=== PATIENT | female | born 1990 | race Caucasian/White ===

== ENCOUNTER 2018-03-12 10:01 | Emergency (ER) | payer OTHER ==
[2018-03-12 10:07] VITALS: BP 133/87
--- NOTE | 2018-03-12 10:25 | EDPHY ---
H & P Stated Complaint: Jammed R thumb at work yesterday Time Seen by Provider: 03/12/18 10:24 HPI/ROS: HPI: This is a 27-year-old female who presents with Chief Complaint: Jammed R thumb at work yesterday Location: Right thumb Quality: Injury Duration: Yesterday Signs and Symptoms: No bleeding, no radiation, no numbness, no weakness, no tingling, no incontinence, + decreased range of motion, no swelling, + pain, no fever Timing: Acute Severity: Moderate Context: Patient is right-hand dominant, was working at the [employer] with a dog when she wrestled him into his can out and somehow injured her right thumb at the base. She reports that she felt immediate, constant, moderate, nonradiating pain at the base of her thumb. She reports mild swelling with increased pain with flexion and extension. She denies any paresthesias, weakness, skin color changes. Modifying Factors: None Comment: ROS: A comprehensive 10 system review of systems is otherwise negative aside from elements mentioned in the history of present illness. MEDICAL/SURGICAL/SOCIAL HISTORY: Medical history: Generally healthy. LMP 2-3 weeks ago. Takes oral control pills. Surgical history: Denies Social history: Current every day tobacco user. CONSTITUTIONAL: Well-developed, well-nourished, young adult white female, awake and alert, no obvious distress HEENT: Atraumatic and normocephalic. NECK: supple EXTREMITIES: 2/2 pulses, strength 5/5, right thumb at the MCP joint shows mild tenderness and mild decreased flexion extension but these are intact. DIP flexion/extension intact with good light touch sensation. no deformities, no clubbing, no cyanosis or edema. NEUROLOGICAL: no focal neuro deficits. GCS 15. Light touch sensation intact. SKIN: Warm and dry, no erythema. no rash. Good capillary refill. Source: Patient Exam Limitations: No limitations - Personal History LMP (Females 10-55): 22-28 Days Ago Current Tetanus Diphtheria and Acellular Pertussis (TDAP): Unsure - Medical/Surgical History Other PMH: healthy - Social History Smoking Status: Current every day smoker Constitutional: Initial Vital Signs Temperature (C) 37 C 03/12/18 10:03 Heart Rate 80 03/12/18 10:03 Respiratory Rate 18 03/12/18 10:03 Blood Pressure 133/87 H 03/12/18 10:03 O2 Sat (%) 98 03/12/18 10:03 O2 Delivery Mode Room Air Allergies/Adverse Reactions: Penicillins Allergy (Intermediate, Verified 03/12/18 10:07) Hives Home Medications: Medication Instructions Recorded Control Pills 03/12/18 Medical Decision Making - Diagnostics Imaging Results: Imaging Impressions Finger X-Ray 03/12/18 10:28 Impression: Negative. No acute fracture. Procedures: Procedure: Splint placement. A right thumb spica Velcro splint was applied by the Emergency Room clean room technician. After application of the splint I returned and re-examined the patient. The splint was adequately immobilizing the joint and distal to the splint the patient's circulation and sensation was intact. ED Course/Re-evaluation: Vital signs reviewed and stable upon arrival. Suspect sprain of UCL ligament but not rupture Placed in Velcro thumb spica splint with Hand follow-up as needed No signs of neurovascular compromise/tenting of skin/compartment syndrome/ extremities and joints examined above and below area of concern and are neurovascularly intact. This patient was seen under the supervision of my secondary supervising physician. I evaluated care for this patient independently. Discussed this patient with Dr. Rushing who did not see the patient. Differential Diagnosis: Differential diagnosis includes but is not limited to fracture, dislocation, ligament rupture, sprain, nerve injury. Departure - Departure Disposition: Home, Routine, Self-Care Clinical Impression: Sprain of hand, thumb, right Qualifiers: Encounter type: initial encounter Sprain of finger site: metacarpophalangeal joint Qualified Code(s): S63.641A - Sprain of metacarpophalangeal joint of right thumb, initial encounter Skier's thumb Qualifiers: Encounter type: initial encounter Laterality: right Qualified Code(s): S63.641A - Sprain of metacarpophalangeal joint of right thumb, initial encounter Condition: Good Instructions: Skier's Thumb (ED) Additional Instructions: Wear the thumb spica splint while out of bed until pain free or seen by orthopedic/hand. Take Tylenol 650 mg every 4 hours and/or Ibuprofen 600 mg every 8 hours with food as needed for pain. Apply ice for 30 minutes at a time; 2-3 times per day for the next 1-2 days. Follow up with Orthopedics-Hand in 5-7 days if symptoms persist at which time they will evaluate and recommend with you if conservative management versus further imaging is indicated. The x-rays obtained in the emergency department today demonstrate no evidence of an obvious fracture. Sometimes fractures are not obvious on the initial set of x-rays performed in the ED. For this reason, you should have repeat x-rays performed in 7-10 days if you are having any pain exclude the possibility of an occult fracture. Referrals: Alf Helton MD [Medical Doctor] - As per Instructions
== END 2018-03-12 10:58 | disposition home or self-care (01) ==
DX: S63.641A Sprain of metacarpophalangeal joint of right thumb, initial encounter (principal); W54.8XXA Other contact with dog, initial encounter; Y99.0 Civilian activity done for income or pay; Y92.89 Other specified places as the place of occurrence of the external cause; Y93.9 Activity, unspecified
CPT/HCPCS: L3807